=== PATIENT | female | born 1985 | race Caucasian/White ===

== ENCOUNTER 2018-12-27 09:46 | Outpatient (CLI) | payer MEDICARE ==
[2018-12-27] VITALS (17 sets, daily range): BP systolic 117–144; BP diastolic 76–95
[~2018-12-27 09:46] MED LIST: CLON-527 PO; COU1T PO; OMEP40CA13 PO; QUET-1 PO; REM15T PO; TRAM50TA2 PO
== END 2018-12-27 23:59 | disposition home or self-care (01) ==
LOC: CARD DIAG 09:46
PROVIDERS: ATTEND Internal Medicine Interventional Cardiology
DX: R55 Syncope and collapse (principal)
CPT/HCPCS: 93660

== ENCOUNTER 2019-07-22 09:44 | Emergency (ER) | payer MEDICARE ==
[~2019-07-22] VITALS: Ht 170.2 cm; Wt 125.0 kg
[2019-07-22 09:46] VITALS: BP 148/81
== END 2019-07-22 10:31 | disposition home or self-care (01) ==
LOC: ER 09:45
DX: S90.122A Contusion of left lesser toe(s) without damage to nail, initial encounter (principal); E11.9 Type 2 diabetes mellitus without complications; F41.9 Anxiety disorder, unspecified; F31.9 Bipolar disorder, unspecified; F15.90 Other stimulant use, unspecified, uncomplicated; Z86.711 Personal history of pulmonary embolism; Z86.718 Personal history of other venous thrombosis and embolism; Z88.0 Allergy status to penicillin; Z79.01 Long term (current) use of anticoagulants; Z88.8 Allergy status to other drugs, medicaments and biological substances; W22.8XXA Striking against or struck by other objects, initial encounter; Y93.89 Activity, other specified; Y92.009 Unspecified place in unspecified non-institutional (private) residence as the place of occurrence of the external cause; Y99.8 Other external cause status
CPT/HCPCS: 73630; 99283

== ENCOUNTER 2022-09-19 18:39 | Emergency (ER) | payer MEDICARE, MEDICAID ==
[~2022-09-19] VITALS: Ht 170.2 cm; Wt 104.5 kg
[~2022-09-19 18:39] MED LIST changes: +ALBU18HF2 PO; +APIX5TAB3 PO; -CLON-527 PO; -COU1T PO; +FLO44IN PO; +GABA300C PO; +GLIP2.5T3 PO; +LURA60TA PO; +METF-900 PO; +MONT-40 PO; +MULT-1085 PO; +OMEG1CAP61 PO; -OMEP40CA13 PO; +PRAZ2CAP2 PO; -QUET-1 PO; -REM15T PO; +THIA50TA10 PO; -TRAM50TA2 PO; +VORT10TA PO
[2022-09-19 21:02] LABS: BASOPHILS # (AUTO) 0.1 X10'3 (0-0.2); BASOPHILS % (AUTO) 1.1 % (0-1); EOSINOPHILS # (AUTO) 0.2 X10'3 (0-0.9); HEMOGLOBIN 8.4 g/dl (12.0-16.0); LYMPHOCYTES # (AUTO) 2.7 X10'3 (1.1-4.8); MEAN CORPUSCULAR HEMOGLOBIN 24.3 PG (27.0-31.0); MONOCYTES # (AUTO) 0.8 X10'3 (0-0.9); NEUTROPHILS # (AUTO) 9.4 X10'3 (1.8-7.7)
[2022-09-19 21:03] LABS: EOSINOPHILS % (AUTO) 1.5 % (0-6); LYMPHOCYTES % (AUTO) 20.4 % (21-51); MEAN CORPUSCULAR VOLUME 78.5 FL (78-98); MEAN PLATELET VOLUME 8.1 FL (7.4-10.4); MONOCYTES % (AUTO) 5.8 % (2-12); NEUTROPHILS % (AUTO) 71.2 % (42-75); PLATELET COUNT 653 X10'3 (140-440); RED BLOOD COUNT 3.44 X10'6 (4.20-5.60); RED CELL DISTRIBUTION WIDTH 15.7 % (11.5-14.5); WHITE BLOOD COUNT 13.3 X10'3 (4.5-11.0)
[2022-09-19 21:12] LABS: ALANINE AMINOTRANSFERASE 20 U/L (12-78); ALBUMIN 3.3 G/DL (3.4-5.0); ALBUMIN/GLOBULIN RATIO 0.9 (1.1-1.5); ALKALINE PHOSPHATASE 74 IU/L (46-116); ANION GAP 13 (8-16); ASPARTATE AMINO TRANSFERASE 11 U/L (10-37); BILIRUBIN,TOTAL 0.2 MG/DL (0.1-1.0); BLOOD UREA NITROGEN 11 MG/DL (7-18); BUN/CREATININE RATIO 10.9 (10.0-20.0); CALCIUM 9.2 MG/DL (8.5-10.1); CHLORIDE 105 MMOL/L (99-107); CREATININE 1.01 MG/DL (0.40-0.90); GLUCOSE 179 MG/DL (70-104); SODIUM 141 MMOL/L (135-145); TOTAL CARBON DIOXIDE 23.3 MMOL/L (24-32); TOTAL PROTEIN 7.1 G/DL (6.4-8.2); eCRCL 73 ML/MIN; eGFR 61 ML/MIN
[2022-09-19 21:17] LABS: APTT 25 SECONDS (22-32); PROTHROMBIN TIME 10.7 SECONDS (9.0-12.0)
[2022-09-19 22:49] LABS: ANISOCYTOSIS 1+; MICROCYTOSIS 1+; PLATELET ESTIMATE INCREASED; POIKILOCYTOSIS 2+
[2022-09-19 22:50] LABS: BURR CELLS 1+; ELLIPTOCYTES 1+
[2022-09-19 22:51] LABS: POLYCHROMASIA FEW
[2022-09-19 22:52] LABS: ACANTHOCYTES FEW; LARGE PLATELETS FEW
--- NOTE | 2022-09-19 23:52 | NUR ---
ECDIS N NAVIGATION OPERATOR AT BEDSIDE. NEED FOR FULL BLADDER FOR EXAM. WILL COLLECT UA AFTER ULTRASOUND AND PLACE IV LINE AT THAT TIME
[2022-09-20 00:59] LABS: CLARITY,URINE CLOUDY (Clear); COLOR,URINE BROWN (Yellow); URINE HCG NEGATIVE (NEG)
[2022-09-20 01:08] LABS: UA COLLECTION TYPE CLN CATCH MIDSTREAM
[2022-09-20 01:13] LABS: BACTERIA,URINE FEW /HPF (Neg); RBC,URINE TNTC /HPF (0-2); WBC,URINE 0-4 /HPF (0-4)
[2022-09-20 01:14] LABS: HYALINE CASTS 0-3 /LPF (NEGATIVE); MUCUS STRANDS MANY /LPF (Neg); SQUAMOUS EPITHELIAL CELL,UR FEW /LPF (FEW)
[2022-09-20 02:26] LABS: HEMATOCRIT 22.6 % (35.0-45.0); MEAN CORPUSCULAR HEMOGLOBIN 24.7 PG (27.0-31.0); MEAN CORPUSCULAR HGB CONC 31.2 g/dL (33.0-36.5); PLATELET COUNT 400 X10'3 (140-440); RED BLOOD COUNT 2.86 X10'6 (4.20-5.60); RED CELL DISTRIBUTION WIDTH 15.8 % (11.5-14.5); WHITE BLOOD COUNT 13.1 X10'3 (4.5-11.0)
--- NOTE | 2022-09-20 02:35 | NUR ---
RECEIVED CRITICAL HGB OF 7.0 DR CURRIE NOTIFIED AND BLOOD BANK CALLED TO CHECK ON STATUS OF PRBCS. THIS RN NOTIFIED BLOOD WILL NOT BE READY FOR 5-10 MINUTES MORE AND THEN BLOOD BANK WILL CALL
[2022-09-20 02:52] VITALS: O2SAT 100
[2022-09-20 03:00] VITALS: BP 107/65; PULSE 70; RESP 16; TEMP 98.1
[2022-09-20 03:20] VITALS: BP 116/73; PULSE 76; RESP 16; TEMP 97.9
--- NOTE | 2022-09-20 03:25 | NUR ---
PER ENVIRONMENTAL CONTROL ADMINISTRATOR MABEL THIS RN TO TRANSPORT WITH PT SHE IS RUNNING BLOOD, ENVIRONMENTAL CONTROL ADMINISTRATOR TO TAKE OVER THIS RNS SECTION DURING THAT TIME
--- NOTE | 2022-09-20 03:28 | NUR ---
LORRAINE Lockhart departed with the patient and EMS to [facility]
== END 2022-09-20 05:52 | disposition short-term general hospital (02) ==
LOC: ER 18:40
DX: N92.0 Excessive and frequent menstruation with regular cycle (principal); D64.9 Anemia, unspecified; T50.905A Adverse effect of unspecified drugs, medicaments and biological substances, initial encounter; E11.9 Type 2 diabetes mellitus without complications; F31.9 Bipolar disorder, unspecified; F15.90 Other stimulant use, unspecified, uncomplicated; Z88.0 Allergy status to penicillin; Z79.899 Other long term (current) drug therapy; Y92.89 Other specified places as the place of occurrence of the external cause
CPT/HCPCS: 36415; 36430; 76830; 76856; 80053; 81001; 81025; 85008; 85025; 85027; 85610; 85730; 86885; 86900; 86901; 86920; 93976; 99285; J7040; P9016

== ENCOUNTER 2023-07-12 18:10 | Emergency (ER) | payer MEDICARE, MEDICAID ==
[~2023-07-12] VITALS: Ht 170.2 cm; Wt 101.4 kg
[2023-07-12 18:37] VITALS: TEMP 98.2
[2023-07-12 23:17] LABS: BASOPHILS # (AUTO) 0.1 X10'3 (0-0.2); EOSINOPHILS # (AUTO) 0.2 X10'3 (0-0.9); EOSINOPHILS % (AUTO) 1.6 % (0-6); HEMATOCRIT 49.9 % (35.0-45.0); HEMOGLOBIN 16.5 g/dl (12.0-16.0); LYMPHOCYTES % (AUTO) 39.6 % (21-51); MEAN CORPUSCULAR HEMOGLOBIN 31.3 PG (27.0-31.0); MEAN CORPUSCULAR HGB CONC 33.1 g/dL (33.0-36.5); MEAN CORPUSCULAR VOLUME 94.6 FL (78-98); MEAN PLATELET VOLUME 8.2 FL (7.4-10.4); MONOCYTES # (AUTO) 0.5 X10'3 (0-0.9); MONOCYTES % (AUTO) 4.6 % (2-12); NEUTROPHILS # (AUTO) 5.4 X10'3 (1.8-7.7); NEUTROPHILS % (AUTO) 53.2 % (42-75); PLATELET COUNT 408 X10'3 (140-440); RED BLOOD COUNT 5.27 X10'6 (4.20-5.60); RED CELL DISTRIBUTION WIDTH 13.2 % (11.5-14.5); WHITE BLOOD COUNT 10.1 X10'3 (4.5-11.0)
[2023-07-12 23:32] LABS: ALANINE AMINOTRANSFERASE 48 U/L (12-78); ALBUMIN 4.5 G/DL (3.4-5.0); ALKALINE PHOSPHATASE 65 IU/L (46-116); ANION GAP 11 (8-16); ASPARTATE AMINO TRANSFERASE 22 U/L (10-37); BILIRUBIN,TOTAL 0.5 MG/DL (0.1-1.0); BLOOD UREA NITROGEN 21 MG/DL (7-18); BUN/CREATININE RATIO 23.1 (10.0-20.0); CALCIUM 10.2 MG/DL (8.5-10.1); CHLORIDE 100 MMOL/L (99-107); CREATININE 0.91 MG/DL (0.40-0.90); GLUCOSE 122 MG/DL (70-104); POTASSIUM 4.2 MMOL/L (3.5-5.1); SODIUM 137 MMOL/L (135-145); TOTAL CARBON DIOXIDE 25.6 MMOL/L (24-32); TOTAL PROTEIN 9.2 G/DL (6.4-8.2); eCRCL 81 ML/MIN; eGFR 69 ML/MIN
[2023-07-12 23:39] LABS: MAGNESIUM 1.8 MG/DL (1.5-2.4); PRO BRAIN NATRIURETIC PEPTIDE < 30 PG/ML (0-125)
[2023-07-12 23:52] LABS: APTT 25 SECONDS (22-32); INR 1.1 INR; PROTHROMBIN TIME 11.4 SECONDS (9.0-12.0)
[2023-07-13] MEDS: ringers solution, lacted 1,000 ML IV ONE ×3 (00:01→04:34)
[2023-07-13] MEDS ORDERED: ARIP10TA57 PO (01:25)
[2023-07-13] MEDS ORDERED: FEZO45TA PO (01:25)
[2023-07-13] MEDS ORDERED: GUAN2TAB PO (01:25)
[2023-07-13] MEDS ORDERED: DIVA500T9 PO (01:25)
[2023-07-13] MEDS ORDERED: BUSP5TAB3 PO (01:25)
[2023-07-13] MEDS ORDERED: EMPA10TA PO (01:25)
[2023-07-13 06:25] VITALS: BP 121/59; PULSE 66; RESP 18; O2SAT 98
== END 2023-07-13 06:37 | disposition home or self-care (01) ==
LOC: ER 18:10
DX: R53.1 Weakness (principal); E86.0 Dehydration; E11.9 Type 2 diabetes mellitus without complications; Z86.718 Personal history of other venous thrombosis and embolism; F41.9 Anxiety disorder, unspecified; F31.9 Bipolar disorder, unspecified; Z86.711 Personal history of pulmonary embolism; F15.90 Other stimulant use, unspecified, uncomplicated; F19.90 Other psychoactive substance use, unspecified, uncomplicated; Z88.0 Allergy status to penicillin
CPT/HCPCS: 36415; 71045; 80053; 83735; 83880; 84484; 85025; 85610; 85730; 86885; 86900; 86901; 93005; 96360; 96361; 99285; J7120

== ENCOUNTER 2024-05-08 12:20 | Emergency (ER) | payer MEDICARE, MEDICAID ==
[~2024-05-08] VITALS: Ht 170.2 cm; Wt 95.4 kg
[~2024-05-08 12:20] MED LIST changes: +DIVA500T9 PO; +EMPA10TA PO; +FEZO45TA PO; -GLIP2.5T3 PO; +LORA-268; +LUMA42CA PO; -LURA60TA PO; -MONT-40 PO; -OMEG1CAP61 PO; +PRAZ1CAP5 PO; -PRAZ2CAP2 PO; +SEMA0.258; +SERT-433 PO; -THIA50TA10 PO; +TRAZ-251 PO; +VILO100C; +VILO200C PO; -VORT10TA PO
[2024-05-08 14:10] LABS: BASOPHILS # (AUTO) 0.1 X10'3 (0-0.2); BASOPHILS % (AUTO) 1.2 % (0-1); EOSINOPHILS # (AUTO) 0.6 X10'3 (0-0.9); EOSINOPHILS % (AUTO) 5.1 % (0-6); HEMATOCRIT 43.1 % (35.0-45.0); HEMOGLOBIN 14.1 g/dl (12.0-16.0); LYMPHOCYTES # (AUTO) 2.7 X10'3 (1.1-4.8); LYMPHOCYTES % (AUTO) 24.6 % (21-51); MEAN CORPUSCULAR HEMOGLOBIN 29.2 PG (27.0-31.0); MEAN CORPUSCULAR HGB CONC 32.8 g/dL (33.0-36.5); MEAN PLATELET VOLUME 8.5 FL (7.4-10.4); MONOCYTES # (AUTO) 0.5 X10'3 (0-0.9); MONOCYTES % (AUTO) 4.9 % (2-12); NEUTROPHILS # (AUTO) 6.9 X10'3 (1.8-7.7); NEUTROPHILS % (AUTO) 64.2 % (42-75); PLATELET COUNT 397 X10'3 (140-440); RED BLOOD COUNT 4.84 X10'6 (4.20-5.60); RED CELL DISTRIBUTION WIDTH 16.8 % (11.5-14.5); WHITE BLOOD COUNT 10.8 X10'3 (4.5-11.0)
[2024-05-08 14:32] LABS: ALANINE AMINOTRANSFERASE 25 U/L (12-78); ALBUMIN 3.8 G/DL (3.4-5.0); ALBUMIN/GLOBULIN RATIO 0.9 (1.1-1.5); ALKALINE PHOSPHATASE 60 IU/L (46-116); ANION GAP 9 (8-16); ASPARTATE AMINO TRANSFERASE 18 U/L (10-37); BILIRUBIN,TOTAL 0.2 MG/DL (0.1-1.0); BLOOD UREA NITROGEN 14 MG/DL (7-18); BUN/CREATININE RATIO 14.6 (10.0-20.0); CALCIUM 9.4 MG/DL (8.5-10.1); CHLORIDE 104 MMOL/L (99-107); CREATININE 0.96 MG/DL (0.40-0.90); GLUCOSE 93 MG/DL (70-104); LIPASE 72 U/L (16-77); POTASSIUM 4.8 MMOL/L (3.5-5.1); SODIUM 141 MMOL/L (135-145); TOTAL CARBON DIOXIDE 27.9 MMOL/L (24-32); TOTAL PROTEIN 8.1 G/DL (6.4-8.2); eCRCL 76 ML/MIN; eGFR 64 ML/MIN
[2024-05-08 15:06] LABS: BILIRUBIN,URINE NEGATIVE (Neg); CLARITY,URINE CLEAR (Clear); GLUCOSE, URINE >=1000 mg/dl (Neg); KETONES,URINE TRACE mg/dl (Neg); LEUKOCYTE ESTERASE ,URINE NEGATIVE (Neg); NITRITES, URINE NEGATIVE (Neg); OCCULT BLOOD,URINE NEGATIVE (Neg); PH,URINE 5.5 (4.8-8.0); PROTEIN,URINE NEGATIVE (Neg); UROBILINOGEN,URINE 0.2 E.U/dL (0.2-1.0)
[2024-05-08 15:09] LABS: COLOR,URINE DARK YELLOW (Yellow); UA COLLECTION TYPE CLN CATCH MIDSTREAM
[2024-05-08 15:16] LABS: BACTERIA,URINE 1+ /HPF (Neg); MUCUS STRANDS FEW /LPF (Neg); RBC,URINE 0-2 /HPF (0-2); RENAL CELLS, URINE FEW /HPF; SQUAMOUS EPITHELIAL CELL,UR MANY /LPF (FEW); TRANSITIONAL EPI CELLS,URINE FEW /HPF; WBC,URINE 0-4 /HPF (0-4)
[2024-05-08 15:17] LABS: URINE HCG NEGATIVE (NEG)
[2024-05-08] MEDS ORDERED: iohexol 300mg/ml 100ml inj. ONE (15:40)
[2024-05-08 17:04] VITALS: BP 104/62; PULSE 74; RESP 16; TEMP 97.8; O2SAT 98
== END 2024-05-08 17:06 | disposition home or self-care (01) ==
LOC: ER 12:21
DX: R10.9 Unspecified abdominal pain (principal); E11.9 Type 2 diabetes mellitus without complications; F31.9 Bipolar disorder, unspecified; Z86.711 Personal history of pulmonary embolism; Z88.0 Allergy status to penicillin
CPT/HCPCS: 36415; 74176; 80053; 81001; 81025; 82948; 83690; 85025; 99284; Q9967

== ENCOUNTER 2024-06-14 11:01 | Emergency (ER) | payer MEDICARE, MEDICAID ==
[~2024-06-14] VITALS: Ht 170.2 cm; Wt 100.0 kg
[2024-06-14 11:04] VITALS: TEMP 97.3
--- NOTE | 2024-06-14 11:31 | ELECTROCARDIOGRAPH REPORT ---
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 Tulio Zambrnao Measurements Intervals [place] Rate: 88 P: 18 NC: 127 QRS: 28 QRSD: 60 T: 3 QT: 493 QTc: 597 Interpretive Statements Sinus rhythm Low voltage, precordial leads Borderline T abnormalities, diffuse leads Prolonged QT interval Electronically Signed On 06-14-2024 15:47:[address] Tulio Zambrano Please click the below link to view image of tracing.
--- NOTE | 2024-06-14 11:39 | RADIOLOGY REPORT ---
CHEST RADIOGRAPH Indication: CP Technique: Single frontal view of the chest was obtained COMPARISON: DI CHEST,SINGLE VIEW on DOS: 09/23/23, DI CHEST,SINGLE VIEW on DOS: 07/12/23 FINDINGS: Lines and Tubes: None Lungs: Clear Pleura: No effusion. No pneumothorax. Cardiomediastinal contours: Unremarkable Bones: Unremarkable IMPRESSION: No acute disease.
--- NOTE | 2024-06-14 11:45 | RADIOLOGY REPORT ---
EXAM: CT CT HEAD HISTORY: fall COMPARISON: None TECHNIQUE: Noncontrast axial CT images of the head were performed. Sagittal and coronal reformatted i mages were obtained. This CT exam was performed using 1 or more of the following dose reduction techn iques: Automated exposure control, adjustment of the mA and/or kv according to patient size, or the u se of iterative reconstruction techniques. Radiation Dose: CTDI volume is 47.22 mGy. Dose-length product is 771 mGy*cm FINDINGS: No intracranial hemorrhage, mass, midline shift, hydrocephalus, or evidence of acute large vessel inf arct. The partially-visualized paranasal sinuses are clear. The bilateral mastoid air cells and middl e ear spaces are clear. There is mildly divergent optic gaze. No cranial fracture or scalp edema. IMPRESSION: No acute intracranial process.
[2024-06-14 11:49] LABS: BASOPHILS % (AUTO) 0.3 % (0-1); EOSINOPHILS # (AUTO) 0.3 X10'3 (0-0.9); HEMATOCRIT 39.5 % (35.0-45.0); HEMOGLOBIN 13.3 g/dl (12.0-16.0); LYMPHOCYTES # (AUTO) 1.9 X10'3 (1.1-4.8); LYMPHOCYTES % (AUTO) 13.2 % (21-51); MEAN CORPUSCULAR HEMOGLOBIN 30.2 PG (27.0-31.0); MEAN CORPUSCULAR HGB CONC 33.6 g/dL (33.0-36.5); MEAN CORPUSCULAR VOLUME 89.8 FL (78-98); MEAN PLATELET VOLUME 8.7 FL (7.4-10.4); MONOCYTES # (AUTO) 1.2 X10'3 (0-0.9); MONOCYTES % (AUTO) 8.1 % (2-12); NEUTROPHILS # (AUTO) 11.1 X10'3 (1.8-7.7); NEUTROPHILS % (AUTO) 76.4 % (42-75); PLATELET COUNT 284 X10'3 (140-440); RED CELL DISTRIBUTION WIDTH 15.7 % (11.5-14.5); WHITE BLOOD COUNT 14.5 X10'3 (4.5-11.0)
--- NOTE | 2024-06-14 11:57 | Physician Documentation ---
History of Present Illness ~ General Chief Complaint: Multiple Medical Complaints Stated Complaint: SYNCOPAL EPISODES/HIT HEAD/ON BLOOD THINNERS Time Seen by MD: 11:34 Primary Medical Doctor: TEODORA Source: patient, family History of Present Illness Initial Comments 39-year-old female history of DVT on Eliquis presenting for syncopal episode. She reports normally nearly passing out in the nighttime when she gets up to go the bathroom. This is a frequent occurrence. Last night she got dizzy when she walked to the bathroom and then when sitting on toilet trying to urinate she passed out and fell down hitting her head and her knees and her back. She denies any chest pain or shortness of breath during the episode. No loss of consciousness that she is aware of. Her boyfriend who is at bedside provides further history and reports that her episodes last for a few sec. she has been having these for many years. She has no family history of sudden cardiac that she is aware of however has lost multiple family members who do drug overdoses trauma etc.. She denies any chest pain or shortness of breath with exertion or during these incidents. She also denies any exertional syncope or syncope outside of nighttime wakening/bath use Medication Reconciliation Allergies: Coded Allergies: Penicillins (Verified Allergy, Severe, Rash, 06/14/24) Scheduled Apixaban (Eliquis), 1 TAB PO BID, (Reported) Empagliflozin (Jardiance), 1 TAB PO DAILY, (Reported) Fezolinetant (Veozah), 1 TAB PO DAILY, (Reported) Fluticasone Propionate (Flovent Hfa), 2 PUFFS PO BID, (Reported) Gabapentin (Neurontin), 1 CAP PO BID, (Reported) Lumateperone Tosylate (Caplyta), 1 CAP PO DAILY, (Reported) Metformin Hcl* (Metformin ER*), 4 TAB PO QDD, (Reported) Multivitamin (Multi Vitamin Daily), 1 TAB PO DAILY Prazosin Hcl (Prazosin Hcl), 2 MG PO HS Sertraline HCl (Sertraline HCl), 100 MG PO DAILY Viloxazine HCl (Qelbree), 1 CAP PO DAILY, (Reported) Scheduled PRN Albuterol Sulfate (Ventolin Hfa), 2-4 PUFFS PO Q4H PRN for SOB or wheezing, (Reported) Miscellaneous Medications Lorazepam (Ativan), (Reported) Semaglutide (Ozempic), (Reported) Viloxazine HCl (Qelbree), (Reported) Past Medical History Past Medical History: Pulmonary Embolism, Diabetes, Deep Vein Thrombosis, Anxiety, Bipolar Past Surgical History: no surgical history Patient History: FH: diabetes mellitus Alcohol Use: None Drug Use: methamphetamine, other Lives In: Home Review of Systems All Other Systems at this time: Reviewed and Negative Constitutional: Denies: fever Cardiovascular: Denies: chest pain Neurological: Reports: dizziness, fainting; Denies: headache, tingling Physical Exam Physical Exam Vital Signs: Temperature: 97.3, Heart Rate: 103, Respiratory Rate: 14, BP: 102/65, Pulse Oximetry: 98, Weight: 100.000 Physical Exam Well-appearing no distress Cardiopulmonary clear to auscultation bilaterally no murmur Neuro awake alert oriented MSK left knee evaluation negative anterior drawer and Panfilo's, firm endpoints with valgus and varus strain, elicited discomfort over lateral collateral ligament with varus. Progress Progress Note Discussed EKG finding of QT prolongation with Dr. Padilla. He recommended discontinuing Results/Orders Reviewed/noted all lab results: Yes Results/Orders Orders - WILLI BERRIOS MD Chest,Single View (06/14/24 11:08) Monitor (06/14/24 11:08) Saline Lock (06/14/24 11:08) Oxygen (06/14/24 11:08) Electrocardiogram (06/14/24 11:08) Hs Troponin I W Calculations (06/14/24 14:08) Knee, Complete (06/14/24 12:34) Lumbar Spine Limited (06/14/24 12:34) Electrocardiogram (06/14/24 ) Ct Thoracic Spine (06/14/24 15:26) Completed Orders - WILLI BERRIOS MD Chest,Single View (06/14/24 11:08) Cbc/Diff (06/14/24 11:08) PBNP (06/14/24 11:08) Electrocardiogram (06/14/24 11:08) CMP (06/14/24 11:08) Hs Troponin I W Calculations (06/14/24 11:08) Hs Troponin I W Calculations (06/14/24 13:08) Knee, Complete (06/14/24 12:34) Lumbar Spine Limited (06/14/24 12:34) MG (06/14/24 11:33) Electrocardiogram (06/14/24 ) Ct Thoracic Spine (06/14/24 15:26) Ringers Solution, Lacted (Lactated Ringe (06/14/24 15:10) Vital Signs 06/14/24 06/14/24 06/14/24 06/14/24 11:04 11:53 13:00 13:50 Temp 97.3 Pulse 103 77 78 Resp 14 20 16 B/P (MAP) 102/65 96/66 (76) 102/69 (80) Pulse Ox 98 96 93 O2 Flow Rate 0 0 Laboratory Tests Test 06/14/24 11:33 06/14/24 12:48 White Blood Count 14.5 H Red Blood Count 4.40 Hemoglobin 13.3 Hematocrit 39.5 Mean Corpuscular Volume 89.8 Mean Corpuscular Hemoglobin 30.2 Mean Corpuscular Hemoglobin Concent 33.6 Red Cell Distribution Width 15.7 H Platelet Count 284 Mean Platelet Volume 8.7 Neutrophils (%) (Auto) 76.4 H Lymphocytes (%) (Auto) 13.2 L Monocytes (%) (Auto) 8.1 Eosinophils (%) (Auto) 2.0 Basophils (%) (Auto) 0.3 Neutrophils # (Auto) 11.1 H Lymphocytes # (Auto) 1.9 Monocytes # (Auto) 1.2 H Eosinophils # (Auto) 0.3 Basophils # (Auto) 0.0 CBC Comment Sodium Level 143 Potassium Level 4.4 Chloride Level 106 Carbon Dioxide Level 26.6 Anion Gap 10 Blood Urea Nitrogen 15 Creatinine 1.00 H Estimated GFR/1.73 m2 61 BUN/Creatinine Ratio 15.0 Glucose Level 117 H Calcium Level 9.2 Magnesium Level 1.9 Total Bilirubin 0.2 Aspartate Amino Transf (AST/SGOT) 16 Alanine Aminotransferase (ALT/SGPT) 23 Alkaline Phosphatase 59 Troponin I High Sensitivity 4 6 Pro-B-Type Natriuretic Peptide 86 Total Protein 6.6 Albumin 3.3 L Globulin 3.3 Albumin/Globulin Ratio 1.0 L Chemistry Comments Troponin I High Sens Percent Delta 50 Troponin I Hi Sens Absolute Change 2 EKG/XRAY/CT/US/VASC/MRI EKG : Additional Comment Independent interpretation of EKG by myself time 11:30 a.m. indication syncope QT prolongation 597. Lateral T-wave flattening no ST-elevation CT : Impression I independently interpreted CT head which shows no acute intracranial hemorrhage Medical Decision Making Additional info obtained from: old records Findings d/c summary 01/2024 Differential Diagnosis Hypertrophic cardiomyopathy, arrhythmia, QT prolongation Departure Disposition: HOME / SELF CARE / HOMELESS Impression: Primary Impression: Compression fracture of T11 vertebra Qualified Codes: S22.080A - Wedge compression fracture of T11-T12 vertebra, initial encounter for closed fracture Additional Impression: Syncope and collapse Additional Impression Text Your CT scan showed no acute fracture as read by the radiologist. However I do think it is warranted that you follow up with the disease education specialist to rule out a fracture. If you have persistent pain or increasing pain please return to the emergency department otherwise take Tylenol ibuprofen as needed. As discussed you also have an abnormal EKG likely from your trazodone and Depakote. You should discuss these medications with your psychiatrist and with your cinema operator I do recommend discontinuing at least 1 of them for now. Please return to emergency department if you have any further episodes of passing out Referrals: LULU FINE MD Signature Scribe Signature: na Attestation: WILLI Phelps MD June 14, 2024 11:57
[2024-06-14 12:14] LABS: ALANINE AMINOTRANSFERASE 23 U/L (12-78); ALBUMIN 3.3 G/DL (3.4-5.0); ALKALINE PHOSPHATASE 59 IU/L (46-116); ANION GAP 10 (8-16); ASPARTATE AMINO TRANSFERASE 16 U/L (10-37); BILIRUBIN,TOTAL 0.2 MG/DL (0.1-1.0); BLOOD UREA NITROGEN 15 MG/DL (7-18); CALCIUM 9.2 MG/DL (8.5-10.1); CHLORIDE 106 MMOL/L (99-107); GLUCOSE 117 MG/DL (70-104); POTASSIUM 4.4 MMOL/L (3.5-5.1); PRO BRAIN NATRIURETIC PEPTIDE 86 PG/ML (0-125); SODIUM 143 MMOL/L (135-145); TOTAL CARBON DIOXIDE 26.6 MMOL/L (24-32); TOTAL PROTEIN 6.6 G/DL (6.4-8.2); eCRCL 73 ML/MIN; eGFR 61 ML/MIN
--- NOTE | 2024-06-14 13:20 | RADIOLOGY REPORT ---
INDICATION: back pain AFTER FALL COMPARISON: None TECHNIQUE: 3 views of the lumbar spine were obtained. FINDINGS: Age indeterminate compression fracture involving T11 vertebral body. The paravertebral soft tissues are grossly unremarkable. IMPRESSION: Age indeterminate compression fracture involving T11 vertebral body.
--- NOTE | 2024-06-14 13:24 | RADIOLOGY REPORT ---
EXAM: DI KNEE, COMP 4 VW MIN CLINICAL INDICATION: left knee pain, fall TECHNIQUE: DI KNEE, COMP 4 VW MIN Comparison: None FINDINGS/IMPRESSION: There is no evidence of acute fracture or dislocation. Moderate left knee osteoarthritis The alignment is anatomical. There is no radiopaque foreign body.
[2024-06-14 13:45] LABS: MAGNESIUM 1.9 MG/DL (1.5-2.4)
--- NOTE | 2024-06-14 14:42 | ELECTROCARDIOGRAPH REPORT ---
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 Tulio Zambrano Measurements Intervals [place] Rate: 82 P: 15 VT: 125 QRS: 22 QRSD: 89 T: -7 QT: 375 QTc: 438 Interpretive Statements Sinus rhythm Abnormal R-wave progression, early transition Borderline T abnormalities, diffuse leads Electronically Signed On 06-14-2024 15:47:[address] Tulio Zambrano Please click the below link to view image of tracing.
[2024-06-14] MEDS ORDERED: ringers solution, lacted 1,000 ML IV ONE (15:10)
--- NOTE | 2024-06-14 15:57 | RADIOLOGY REPORT ---
EXAM: CT CT THORACIC SPINE INDICATION: thoracic back pain, abnormal x ray COMPARISON: None TECHNIQUE: Multiple axial CT images of the thoracic spine were obtained using bone algorithm. Axial and coronal reformatting was done. Bone and soft tissue windows were reviewed. Radiation Dose Information: CT Dose: CTDI volume is 27.32 mGy. Dose-length product is 1079.88 mGy*cm FINDINGS: No CT evidence of acute fracture or traumatic mal-alignment. The visualized paraspinal soft tissues a re grossly unremarkable. The disc spaces are relatively preserved. There is mild multilevel degenerative change of the spine, with disc space narrowing, subchondral sclerosis, and marginal osteophyte formation. IMPRESSION: 1. No CT evidence of acute fracture or traumatic mal-alignment of the bony thoracic spine. 2. Radiation optimization: All CT scans at this facility use at least one of these dose optimization techniques: automated exposure control mA and/or kV adjustment per patient size (includes targeted e xams where dose is matched to clinical indication) or iterative reconstruction.
[2024-06-14 16:28] VITALS: BP 102/72; PULSE 78; RESP 14; O2SAT 95
== END 2024-06-14 16:32 | disposition home or self-care (01) ==
LOC: ER 11:02
DX: S22.088A Other fracture of T11-T12 vertebra, initial encounter for closed fracture (principal); R55 Syncope and collapse; E11.9 Type 2 diabetes mellitus without complications; F31.9 Bipolar disorder, unspecified; F15.90 Other stimulant use, unspecified, uncomplicated; F41.9 Anxiety disorder, unspecified; Z88.0 Allergy status to penicillin; W18.11XA Fall from or off toilet without subsequent striking against object, initial encounter; Y93.89 Activity, other specified; Y92.091 Bathroom in other non-institutional residence as the place of occurrence of the external cause; Y99.8 Other external cause status
CPT/HCPCS: 36415; 70450; 71045; 72100; 72128; 73564; 80053; 83735; 83880; 84484; 85025; 93005; 99285; J7120

== ENCOUNTER 2024-06-22 15:31 | Emergency (ER) | payer MEDICARE, MEDICAID ==
[~2024-06-22] VITALS: Ht 170.2 cm; Wt 96.4 kg
[~2024-06-22 15:31] MED LIST changes: -DIVA500T9 PO; -TRAZ-251 PO
--- NOTE | 2024-06-22 19:09 | Physician Documentation ---
History of Present Illness ~ Chief Complaint: Back Pain Stated Complaint: REQUESTING MRI R/O CAUDA EQUINA SYNDROME Time Seen by MD: 19:08 Primary Medical Doctor: perlita mike HPI Patient presented to the emergency room for concerns for possible cauda equina sent by outside physician. Patient reports that she fell up against a wall with resulting back pain. She endorses some degree of urinary incontinence along with left leg weakness onset several days. No problems defecating. Negative saddle anesthesia Addendum I received sign-out on this patient at shift change. Briefly: She presents with left leg weakness and low back pain. Plan is for MRI to rule out cauda equina or other dangerous process. 12:00 p.m.: MRI results with no acute process including no sign of cauda equina, abscess, or dangerous nerve compression. Patient will be discharged with outpatient follow-up with her audio visual specialist and ongoing symptomatic treatment. Lex Hernandes MD Medication Reconciliation Allergies: Coded Allergies: Penicillins (Verified Allergy, Severe, Rash, 06/22/24) Scheduled Apixaban (Eliquis), 1 TAB PO BID, (Reported) Empagliflozin (Jardiance), 1 TAB PO DAILY, (Reported) Fezolinetant (Veozah), 1 TAB PO DAILY, (Reported) Fluticasone Propionate (Flovent Hfa), 2 PUFFS PO BID, (Reported) Gabapentin (Neurontin), 1 CAP PO BID, (Reported) Lumateperone Tosylate (Caplyta), 1 CAP PO DAILY, (Reported) Metformin Hcl* (Metformin ER*), 4 TAB PO QDD, (Reported) Multivitamin (Multi Vitamin Daily), 1 TAB PO DAILY Prazosin Hcl (Prazosin Hcl), 2 MG PO HS Sertraline HCl (Sertraline HCl), 100 MG PO DAILY Viloxazine HCl (Qelbree), 1 CAP PO DAILY, (Reported) Scheduled PRN Albuterol Sulfate (Ventolin Hfa), 2-4 PUFFS PO Q4H PRN for SOB or wheezing, (Reported) Miscellaneous Medications Lorazepam (Ativan), (Reported) Semaglutide (Ozempic), (Reported) Viloxazine HCl (Qelbree), (Reported) Past Medical History Past Medical History: Pulmonary Embolism, Diabetes, Deep Vein Thrombosis, Anxiety, Bipolar Past Surgical History: no surgical history Patient History: FH: diabetes mellitus Alcohol Use: None Drug Use: methamphetamine, other Lives In: Home Review of Systems ROS All review of systems negative except as per HPI Physical Exam Physical Exam Vital Signs: Temperature: 97.9, Heart Rate: 80, Respiratory Rate: 16, BP: 116/82, Pulse Oximetry: 98, Weight: 96.360 Oxygen Flow Rate: 0 Physical Exam General: Patient is awake, alert, oriented x4 in no acute distress Head: Normocephalic and atraumatic. Eyes: Conjunctival normal. EOMI. PERRL. ENT: Mucous membranes moist. Neck: Supple, trachea is midline. Chest: Clear to auscultation bilaterally without rales, rhonchi, or wheezes. There is no accessory muscle use or retractions. Cardiac: RRR without murmurs, gallops, or rubs. Abd: Soft, nondistended, nontender, with normoactive bowel sounds. No guarding, rebound, or rigidity. Extremities: Normal strength. Normal range of motion. No deformities or edema. Back: No point tenderness or step-offs. Diffuse tenderness to palpation Neuro: Cranial nerves II-XII grossly intact. No focal neuro deficits. Patient ambulating without difficulty. Bilateral lower extremity reflexes intact Progress Results/Orders Results/Orders Completed Orders - LEX HERNANDES MD Hydrocodone/Apap 10/325 (Two Dot 10/325mg (06/23/24 10:30) Medications Received in ER Medications (Trade) Dose Ordered Sig/Terry Route PRN Reason Start Time Stop Time Status Last Admin Dose Admin (Two Dot 10/325mg tab) 1 tab ONCE ONCE PO 06/23/24 10:30 06/23/24 10:31 DC 06/23/24 10:51 1 TAB Vital Signs 06/22/24 06/22/24 06/22/24 06/22/24 15:52 19:14 21:17 21:30 Temp 97.9 Pulse 80 Resp 16 16 12 B/P (MAP) 116/82 Pulse Ox 98 O2 Flow Rate 0 06/22/24 06/23/24 06/23/24 06/23/24 21:37 00:43 02:15 02:19 Temp 98.3 Pulse 99 50 48 Resp 12 10 12 B/P (MAP) 116/82 (93) 101/60 (74) 114/81 (92) Pulse Ox 99 96 95 O2 Flow Rate 0 06/23/24 06/23/24 06/23/24 06/23/24 03:00 04:01 06:13 08:28 Pulse 46 46 45 Resp 12 10 10 12 B/P (MAP) 134/89 (104) 120/78 (92) 124/71 (88) Pulse Ox 95 96 97 O2 Flow Rate 0 06/23/24 10:51 Resp 16 Laboratory Tests Test 06/22/24 19:25 06/22/24 21:19 White Blood Count 12.5 H Red Blood Count 4.55 Hemoglobin 13.7 Hematocrit 41.4 Mean Corpuscular Volume 90.9 Mean Corpuscular Hemoglobin 30.1 Mean Corpuscular Hemoglobin Concent 33.1 Red Cell Distribution Width 15.5 H Platelet Count 358 Mean Platelet Volume 8.5 Neutrophils (%) (Auto) 72.6 Lymphocytes (%) (Auto) 18.0 L Monocytes (%) (Auto) 5.3 Eosinophils (%) (Auto) 3.5 Basophils (%) (Auto) 0.6 Neutrophils # (Auto) 9.1 H Lymphocytes # (Auto) 2.2 Monocytes # (Auto) 0.7 Eosinophils # (Auto) 0.4 Basophils # (Auto) 0.1 CBC Comment Sodium Level 143 Potassium Level 4.8 Chloride Level 105 Carbon Dioxide Level 30.3 Anion Gap 8 Blood Urea Nitrogen 23 H Creatinine 1.03 H Estimated GFR/1.73 m2 59 BUN/Creatinine Ratio 22.3 H Glucose Level 140 H Calcium Level 9.9 Albumin 3.4 Chemistry Comments Urine Specimen Description Non-specified Urine Color Yellow Urine Clarity Slightly cloudy Urine pH 6.5 Urine Specific [place] 1.020 Urine Protein Negative Urine Glucose (UA) >=1000 H Urine Ketones Trace H Urine Occult Blood Trace-intact Urine Nitrite Negative Urine Bilirubin Negative Urine Urobilinogen 0.2 Urine Leukocyte Esterase Trace H Urine RBC 0-2 Urine WBC 5-10 H Urine Squamous Epithelial Cells Moderate Urine Bacteria 2+ Urine Mucus Few Urine Culture Indicated Indicated Volume Urine Centrifuged 10 ml Urine HCG, Qualitative Negative Urine Comment Microbiology Date/Time Source Procedure Growth Status 06/22/24 22:13 Urine Nonspecified Urine Culture - Preliminary Gram Negative Jose Resulted Departure Time of Disposition: 12:08 Disposition: 01 HOME / SELF CARE / HOMELESS Impression: Primary Impression: Low back pain Condition: Stable Discharge Instructions: Acute Back Pain, Adult Referrals: NO PRIMARY CARE PROVIDER (PCP) Education Educated: Patient Educated regarding: diagnosis Signature Scribe Signature: na Attestation: LICHA Rivera MD June 22, 2024 19:09 LEX HERNANDES MD June 23, 2024 12:09
[2024-06-22 19:38] LABS: BASOPHILS # (AUTO) 0.1 X10'3 (0-0.2); BASOPHILS % (AUTO) 0.6 % (0-1); EOSINOPHILS # (AUTO) 0.4 X10'3 (0-0.9); EOSINOPHILS % (AUTO) 3.5 % (0-6); HEMATOCRIT 41.4 % (35.0-45.0); HEMOGLOBIN 13.7 g/dl (12.0-16.0); LYMPHOCYTES # (AUTO) 2.2 X10'3 (1.1-4.8); MEAN CORPUSCULAR HEMOGLOBIN 30.1 PG (27.0-31.0); MEAN CORPUSCULAR HGB CONC 33.1 g/dL (33.0-36.5); MEAN CORPUSCULAR VOLUME 90.9 FL (78-98); MEAN PLATELET VOLUME 8.5 FL (7.4-10.4); MONOCYTES # (AUTO) 0.7 X10'3 (0-0.9); MONOCYTES % (AUTO) 5.3 % (2-12); NEUTROPHILS # (AUTO) 9.1 X10'3 (1.8-7.7); NEUTROPHILS % (AUTO) 72.6 % (42-75); PLATELET COUNT 358 X10'3 (140-440); RED BLOOD COUNT 4.55 X10'6 (4.20-5.60); RED CELL DISTRIBUTION WIDTH 15.5 % (11.5-14.5); WHITE BLOOD COUNT 12.5 X10'3 (4.5-11.0)
[2024-06-22 19:46] LABS: ALBUMIN 3.4 G/DL (3.4-5.0); ANION GAP 8 (8-16); BLOOD UREA NITROGEN 23 MG/DL (7-18); BUN/CREATININE RATIO 22.3 (10.0-20.0); CALCIUM 9.9 MG/DL (8.5-10.1); CHLORIDE 105 MMOL/L (99-107); CREATININE 1.03 MG/DL (0.40-0.90); GLUCOSE 140 MG/DL (70-104); POTASSIUM 4.8 MMOL/L (3.5-5.1); SODIUM 143 MMOL/L (135-145); TOTAL CARBON DIOXIDE 30.3 MMOL/L (24-32); eCRCL 71 ML/MIN; eGFR 59 ML/MIN
[2024-06-22] MEDS: normal saline 1000ml 1,000 ML IV ONE (21:16)
[2024-06-22] MEDS: ketorolac trometh 15mg/ml vial 15 MG/ML ML IV ONE (21:17)
--- NOTE | 2024-06-22 21:34 | RADIOLOGY REPORT ---
Clinical History possible spinal impingement Comparison LUMBAR XRAY on 06/22/2024, 3 images. Technique: All CT scans at this medical facility are performed using dose modulation techniques as appropriate t o a performed exam including the following: Automated exposure control was utilized; adjustment of th e mA and/or kV according to patient size; and use of iterative reconstruction technique. All CT studies are reported to the Dose Index Registry of the [employer]. Without Contrast Radiation Dose: CTDI (mGy): 34.79; DLP (mGy-cm): 935.19 KENTON MONTELONGO, [id number] FINDINGS: Osseous structures are anatomically aligned, with no evidence of fracture, dislocation, or subluxatio n. The spinal cord is not well visualized. If there is concern for cord injury, MRI may be consider ed for further detailed evaluation. IMPRESSION: Unremarkable CT of the lumbar spine. This report was electronically signed by Ryan Bullock MD on 06/22/2024 9:30:57 PM.
[2024-06-22 21:37] VITALS: TEMP 98.3
[2024-06-22] MEDS ORDERED: dexamethasone sod phosphate 10mg/ml inj IM STA (21:49)
[2024-06-22 22:04] LABS: BILIRUBIN,URINE NEGATIVE (Neg); CLARITY,URINE SLIGHTLY CLOUDY (Clear); COLOR,URINE YELLOW (Yellow); GLUCOSE, URINE >=1000 mg/dl (Neg); KETONES,URINE TRACE mg/dl (Neg); LEUKOCYTE ESTERASE ,URINE TRACE (Neg); NITRITES, URINE NEGATIVE (Neg); OCCULT BLOOD,URINE TRACE-INTACT (Neg); PH,URINE 6.5 (4.8-8.0); PROTEIN,URINE NEGATIVE (Neg); UROBILINOGEN,URINE 0.2 E.U/dL (0.2-1.0)
[2024-06-22 22:05] LABS: URINE HCG NEGATIVE (NEG)
[2024-06-22 22:09] LABS: UA COLLECTION TYPE NON-SPECIFIED
[2024-06-22 22:12] LABS: BACTERIA,URINE 2+ /HPF (Neg); MUCUS STRANDS FEW /LPF (Neg); SQUAMOUS EPITHELIAL CELL,UR MODERATE /LPF (FEW)
[2024-06-22 22:13] LABS: RBC,URINE 0-2 /HPF (0-2)
[2024-06-22] MEDS: dexamethasone sod phosphate 10mg/ml inj IV STA (23:06)
[2024-06-22] MEDS: diazepam inj 5 MG/ML inj. IV ONE (23:19)
[2024-06-22] MEDS: acetaminophen 1,000mg/100ml IV 100 ML IV ONE (23:26)
[2024-06-23] MEDS: morphine 4 MG/ML inj SYRINge IV ONE (02:19)
[2024-06-23] MEDS: HYDROcodone/acetaminophen 10/325mg tab PO ONE (10:51)
--- NOTE | 2024-06-23 11:24 | RADIOLOGY REPORT ---
PROCEDURE: MR MRI LUMBAR SPINE INDICATION: concern for cauda equina, back pain, recent fall Exam Date: 06/23/2024 09:31 AM COMPARISON: CT CT LUMBAR SPINE on DOS: 06/22/24 TECHNIQUE: Sagittal T1 and T2 MR images of the lumbar spine were performed. FINDINGS: No fracture or listhesis of the lumbar spine. The conus terminates at L1-L2. There is mild degenerat grace disc disease and facet arthropathy. No high-grade spinal canal stenosis or neural foraminal steno sis at any level in the lumbar spine. IMPRESSION: 1. No fracture of the lumbar spine. 2. Mild degenerative disc disease and facet arthropathy without high-grade spinal canal stenosis or n eural foraminal stenosis at any level.
[2024-06-23 12:25] VITALS: BP 114/65; PULSE 55; RESP 16; O2SAT 98
== END 2024-06-23 12:21 | disposition home or self-care (01) ==
LOC: ER 15:33
DX: M54.50 Low back pain, unspecified (principal); R53.1 Weakness; E11.9 Type 2 diabetes mellitus without complications; F31.9 Bipolar disorder, unspecified; F15.90 Other stimulant use, unspecified, uncomplicated; Z88.0 Allergy status to penicillin; Z88.8 Allergy status to other drugs, medicaments and biological substances
CPT/HCPCS: 36415; 72131; 72148; 80048; 81001; 81025; 85025; 87077; 87088; 87186; 96361; 96365; 96366; 96375; 99285; J0131; J1100; J1885; J2270; J3360; J7030

== ENCOUNTER 2024-11-03 09:34 | Outpatient (CLI) | payer MEDICARE, MEDICAID ==
--- NOTE | 2024-11-03 13:44 | RADIOLOGY REPORT ---
CLINICAL HISTORY: PAIN IN LEFT KNEE. Fall injury. COMPARISON: MR MRI LUMBAR SPINE on DOS: 06/23/24, DI KNEE, COMP 4 VW MIN on DOS: 06/14/24, DI LUMBAR SPINE LIMITED on DOS: 06/14/24 TECHNIQUE: Multisequence multiplanar MRI images of the left knee were obtained without contrast. FINDINGS: Cruciate ligaments: ACL and PCL are intact. Extensor mechanism: Quadriceps mechanism and patellar tendon are intact. Mild edema in the superior aspect of Hoffa's fat pad. Collateral ligaments: Medial and lateral collateral ligaments are intact and otherwise unremarkable. Menisci: No significant degeneration. No evidence of meniscal tear. Cartilage: Focal chondral T2 hyperintense signal at the caudal aspect of the lateral trochlea measuring up to 4 mm in greatest dimension, suspected full- thickness or near full-thickness chondral defect, without adjacent subchondral marrow signal changes, although not well correlated on the non-fat saturated PD images. [id number] chondral fissuring near the median ridge of the patella at the mid inferior pole. Bones: Focal marrow edema in the medial aspect of the medial femoral condyle just caudal to the to the tibial attachment of the MCL with associated mild cortical depression, suspected mild impaction type fracture in the appropriate clinical setting. Joint fluid: No significant joint effusion. Other: No other significant findings. IMPRESSION: 1. Focal marrow edema in the medial aspect of the medial femoral condyle with associated mild cortical depression, suspected impaction type fracture. 2. Possible focal chondral defect at the caudal aspect of the lateral trochlea. 3. Mild chondromalacia at the patella. 4. Mild edema in the superior aspect of Hoffa's fat pad, may be seen with mild impingement.
[2024-11-04] MEDS ORDERED: SULF1TAB45 PO (16:59)
== END 2024-11-03 23:59 | disposition home or self-care (01) ==
LOC: MRI02 09:34
PROVIDERS: ATTEND Physician Assistant Surgical
DX: M94.262 Chondromalacia, left knee (principal); M79.4 Hypertrophy of (infrapatellar) fat pad; M25.462 Effusion, left knee; M25.562 Pain in left knee
CPT/HCPCS: 73721

== ENCOUNTER 2024-11-04 13:13 | Emergency (ER) | payer MEDICARE, MEDICAID ==
[~2024-11-04] VITALS: Ht 170.2 cm; Wt 84.7 kg
[2024-11-04 13:19] VITALS: TEMP 98.4
--- NOTE | 2024-11-04 13:27 | ELECTROCARDIOGRAPH REPORT ---
[facility] Test Date: 2024-11-04 Test Time: 13:24:58 Pat Name: KENTON MONTELONGO Department: [facility] Patient ID: 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 Reading MD: Measurements Intervals [place] Rate: 106 P: 21 HI: 112 QRS: 21 QRSD: 75 T: -21 QT: 326 QTc: 433 Interpretive Statements Sinus tachycardia Borderline T abnormalities, diffuse leads Baseline wander in lead(s) V2 Please click the below link to view image of tracing.
--- NOTE | 2024-11-04 14:57 | Physician Documentation ---
History of Present Illness ~ Chief Complaint: Weakness Stated Complaint: WEAKNESS Time Seen by MD: 14:35 OK to notify your PCP?: No Primary Medical Doctor: perl[facility] HPI 39-year-old female presents to the ED with a complaint of ongoing weakness and feeling lightheaded for the last two weeks. She states today that when she stood up and felt lightheaded and laid down she felt her heart was racing and pounding hard. Denies any chest pain or shortness of breath. States that her diabetes is well managed as her last A1c was 5.4 a month ago Day of Onset: Nov 04, 2024 Medication Reconciliation Allergies: Coded Allergies: Penicillins (Verified Allergy, Severe, Rash, 06/22/24) Scheduled Apixaban (Eliquis), 1 TAB PO BID, (Reported) Empagliflozin (Jardiance), 1 TAB PO DAILY, (Reported) Fezolinetant (Veozah), 1 TAB PO DAILY, (Reported) Fluticasone Propionate (Flovent Hfa), 2 PUFFS PO BID, (Reported) Gabapentin (Neurontin), 1 CAP PO BID, (Reported) Lumateperone Tosylate (Caplyta), 1 CAP PO DAILY, (Reported) Metformin Hcl* (Metformin ER*), 4 TAB PO QDD, (Reported) Multivitamin (Multi Vitamin Daily), 1 TAB PO DAILY Prazosin Hcl (Prazosin Hcl), 2 MG PO HS Sertraline HCl (Sertraline HCl), 100 MG PO DAILY Sulfamethoxazole/Trimethoprim (Septra Ds Tab), 1 TAB PO Q12H Viloxazine HCl (Qelbree), 1 CAP PO DAILY, (Reported) Scheduled PRN Albuterol Sulfate (Ventolin Hfa), 2-4 PUFFS PO Q4H PRN for SOB or wheezing, (Reported) Miscellaneous Medications Lorazepam (Ativan), (Reported) Semaglutide (Ozempic), (Reported) Viloxazine HCl (Qelbree), (Reported) Past Medical History Past Medical History: Pulmonary Embolism, Diabetes, Deep Vein Thrombosis, Anxiety, Bipolar Past Surgical History: no surgical history Patient History: FH: diabetes mellitus Alcohol Use: None Drug Use: methamphetamine, other Lives In: Home Review of Systems All Other Systems at this time: Reviewed and Negative ROS As stated above in the HPI, otherwise all systems are reviewed and negative. Physical Exam Vital Signs: Temperature: 98.4, Source: Oral, Heart Rate: 95, Respiratory Rate: 16, BP: 112/76, Pulse Oximetry: 98, Weight: 84.700 Oxygen Flow Rate: 0 Physical Exam General: Alert, no apparent distress. HEENT: PERRL, EOMI, no injection, moist mucous membranes. Neck: Full range of motion. Respiratory: Lungs clear, no respiratory distress. Chest: No accessory muscle use. Cardiovascular: Regular rate and rhythm, no murmurs. Gastrointestinal: Soft, nontender, nondistended. Bowels sounds present. Extremities: Normal range of motion, no deformity. Neurologic: Oriented x4. Psychiatric: Normal mood and affect. Skin: Normal color, warm and dry. No edema, no ecchymosis. Progress Results/Orders Results/Orders Orders - POLI S[employer]IA [employer] Orthostatic Vs (11/04/24 ) Cult Urine + [address] (11/04/24 16:54) Completed Orders - [employer] Cbc/Diff (11/04/24 14:51) BMP (11/04/24 14:51) Ua W/Microscopic, Cult If Ind (11/04/24 16:10) Sulfamethox/Trimetho. Ds Tab (Octra Ds (11/04/24 17:00) Medications Received in ER Medications (Trade) Dose Ordered Sig/Terry Route PRN Reason Start Time Stop Time Status Last Admin Dose Admin ( DS tab) 1 tab ONCE ONCE PO 11/04/24 17:00 11/04/24 17:01 DC 11/04/24 17:06 1 TAB Vital Signs 11/04/24 11/04/24 11/04/24 11/04/24 13:19 15:48 16:04 16:11 Temp 98.4 Pulse 95 74 66 83 90 Resp 16 12 16 B/P (MAP) 112/76 109/65 (80) 116/81 113/86 112/77 Pulse Ox 98 99 O2 Flow Rate 0 11/04/24 17:18 Pulse 70 Resp 14 B/P (MAP) 100/74 Pulse Ox 98 Laboratory Tests Test 11/04/24 13:18 11/04/24 15:41 11/04/24 16:10 Glucometer 116 H White Blood Count 7.9 Red Blood Count 4.62 Hemoglobin 14.0 Hematocrit 42.7 Mean Corpuscular Volume 92.3 Mean Corpuscular Hemoglobin 30.4 Mean Corpuscular Hemoglobin Concent 32.9 L Red Cell Distribution Width 14.4 Platelet Count 261 Mean Platelet Volume 8.7 Neutrophils (%) (Auto) 59.0 Lymphocytes (%) (Auto) 29.9 Monocytes (%) (Auto) 7.0 Eosinophils (%) (Auto) 2.8 Basophils (%) (Auto) 1.3 H Neutrophils # (Auto) 4.7 Lymphocytes # (Auto) 2.4 Monocytes # (Auto) 0.6 Eosinophils # (Auto) 0.2 Basophils # (Auto) 0.1 CBC Comment Sodium Level 140 Potassium Level 4.6 Chloride Level 106 Carbon Dioxide Level 25.5 Anion Gap 9 Blood Urea Nitrogen 20 H Creatinine 0.91 H Estimated GFR/1.73 m2 68 BUN/Creatinine Ratio 22.0 H Glucose Level 95 Calcium Level 9.3 Albumin 3.2 L Chemistry Comments Urine Specimen Description Cln catch midstream Urine Color Yellow Urine Clarity Slightly cloudy Urine pH 6.0 Urine Specific [place] 1.025 Urine Protein Negative Urine Glucose (UA) >=1000 H Urine Ketones 15 H Urine Occult Blood Negative Urine Nitrite Positive H Urine Bilirubin Negative Urine Urobilinogen 0.2 Urine Leukocyte Esterase Trace H Urine RBC 3-10 Urine WBC 50-100 H Urine Squamous Epithelial Cells Moderate Urine Bacteria 4+ Urine Mucus Few Urine Culture Indicated Indicated Volume Urine Centrifuged 10 ml Urine Comment Microbiology Date/Time Source Procedure Growth Status 11/04/24 16:54 Urine Clean Catch Midstream Urine Culture - Preliminary Culture received. Resulted Medical Decision Making Findings This 39-year-old female patient had mostly reassuring laboratory values however she did test positive a urinary tract infection which could be attributing to her lightheadedness in general malaise, we will be starting her on oral antibiotics and discharging at this time Differential Dx:Considerations: Include: anemia, CVA, dehydration, dysrhythmia, electrolyte imbalance, encephalopathy, Guillain-[place], hypoglycemia, hypotension, hypovolemia, labyrinthitis, Meniere's disease, myasathenia gravis, myocardial infarction, pulmonary embolus, renal failure, respiratory failure, TIA, VBI, vertigo central, vertigo peripheral, vestibular neuronitis, other Departure Disposition: 01 HOME / SELF CARE / HOMELESS Impression: Primary Impression: UTI (urinary tract infection) Condition: Stable Discharge Instructions: Urinary Tract Infection, Adult Referrals: NO PRIMARY CARE PROVIDER (PCP) Prescriptions Sulfamethoxazole/Trimethoprim (Septra Ds Tab) 800 Mg/160 Mg Tablet 1 TAB PO Q12H for 10 Days, #20 TAB Prov: [employer]I [employer] 11/04/24 Signature Scribe Signature: d Attestation: Scribed for Poli Soria [employer] by Poli Haynes NP . 11/04/24 17:00 POLI SORIA NP Nov 04, 2024 14:57
[2024-11-04 15:50] LABS: MEAN PLATELET VOLUME 8.7 FL (7.4-10.4); RED CELL DISTRIBUTION WIDTH 14.4 % (11.5-14.5)
[2024-11-04 15:59] LABS: CREATININE 0.91 MG/DL (0.40-0.90); TOTAL CARBON DIOXIDE 25.5 MMOL/L (24-32); eCRCL 80 ML/MIN; eGFR 68 ML/MIN
[2024-11-04 16:48] LABS: LEUKOCYTE ESTERASE ,URINE TRACE (Neg); NITRITES, URINE POSITIVE (Neg); OCCULT BLOOD,URINE NEGATIVE (Neg)
[2024-11-04 16:53] LABS: UA COLLECTION TYPE CLN CATCH MIDSTREAM
[2024-11-04 16:54] LABS: MUCUS STRANDS FEW /LPF (Neg); SQUAMOUS EPITHELIAL CELL,UR MODERATE /LPF (FEW)
[2024-11-04] MEDS ORDERED: SULF1TAB45 PO (16:59)
[2024-11-04] MEDS: sulfamethoxazole/trimethoprim DS (800/160mg) tablet PO ONE (17:06)
[2024-11-04 17:18] VITALS: BP 100/74; PULSE 70; RESP 14; O2SAT 98
== END 2024-11-04 17:18 | disposition home or self-care (01) ==
LOC: ER 13:14
DX: N39.0 Urinary tract infection, site not specified (principal); F31.9 Bipolar disorder, unspecified; E11.9 Type 2 diabetes mellitus without complications; F41.9 Anxiety disorder, unspecified; F15.90 Other stimulant use, unspecified, uncomplicated; F19.90 Other psychoactive substance use, unspecified, uncomplicated; Z86.711 Personal history of pulmonary embolism; Z86.718 Personal history of other venous thrombosis and embolism; Z88.0 Allergy status to penicillin; Z79.899 Other long term (current) drug therapy; Z79.84 Long term (current) use of oral hypoglycemic drugs
CPT/HCPCS: 36415; 80048; 81001; 82948; 85025; 87077; 87088; 87186; 93005; 99284